=== PATIENT | male | born 1955 | race Caucasian/White ===

== ENCOUNTER 2019-10-06 20:55 | Emergency (ER) | payer BC ==
--- NOTE | 2019-10-06 22:00 | NUR ---
Patient was called several times but was not present.
--- NOTE | 2019-10-06 22:47 | NUR ---
Patient left without being triaged or seen by ERMD.
== END 2019-10-06 22:48 | disposition left against medical advice (07) ==
LOC: ER 20:59
DX: Z53.21 Procedure and treatment not carried out due to patient leaving prior to being seen by health care provider (principal)